=== PATIENT | male | born 1985 | race Caucasian/White ===

== ENCOUNTER 2017-02-27 11:51 | Emergency (ER) | payer MEDICARE ==
--- NOTE | 2017-02-27 12:18 | ER Document Report ---
ED Medical Screen (RME) - General Chief Complaint: Psych Problem Stated Complaint: PROBABLE SEIZURE Time Seen by Provider: 02/27/17 12:17 Notes: Patient reports stating that he has been diagnosed in the past with bipolar depression and PTSD. He states he has been feeling depressed lately and did try to overdose approximately 2 days ago. He states this morning he had a seizure and fell and hit his head and his became concerned and called the ambulance. During the EMS drive to the hospital he told them of his depression and suicidal ideation. He denies any auditory or visual hallucinations. He states he does not currently take any medications for seizures. TRAVEL OUTSIDE OF THE [place] IN LAST 30 DAYS: No - Related Data Allergies/Adverse Reactions: Penicillins Allergy (Severe, Verified 02/27/17 12:01) Anaphylaxis acetaminophen [From Tylenol] Adverse Reaction (Verified 02/27/17 12:01) Past Medical History - Past Medical History Cardiac Medical History: Denies: Hx Coronary Artery Disease, Hx Heart Attack, Hx Hypertension Pulmonary Medical History: Denies: Hx Asthma, Hx Bronchitis, Hx COPD, Hx Pneumonia Neurological Medical History: Denies: Hx Cerebrovascular Accident, Hx Seizures Renal/ Medical History: Denies: Hx Peritoneal Dialysis GI Medical History: Comment Only: Hx Ulcer - anxiety ptsd Musculoskeltal Medical History: Reports Hx Arthritis, Reports Hx Musculoskeletal Deformity, Reports Hx Musculoskeletal Trauma Skin Medical History: Reports Hx Cellulitis, Reports Hx MRSA Psychiatric Medical History: Reports: Hx Anxiety, Hx Depression, Hx Post Traumatic Stress Disorder Infectious Medical History: Reports: Hx MRSA Past Surgical History: Reports: Hx Orthopedic Surgery - Immunizations Immunizations up to date: Yes Hx Diphtheria, Pertussis, Tetanus Vaccination: Yes - 2005 Physical Exam - Vital signs Vitals: Temp Pulse Resp BP Pulse Ox 98.4 F 85 22 H 142/95 H 98 02/27/17 11:58 02/27/17 11:58 02/27/17 11:58 02/27/17 11:58 02/27/17 11:58 Course - Vital Signs Vital signs: Temp Pulse Resp BP Pulse Ox 98.4 F 85 22 H 142/95 H 98 02/27/17 11:58 02/27/17 11:58 02/27/17 11:58 02/27/17 11:58 02/27/17 11:58
[2017-02-27 13:48] LABS: ABSOLUTE EOSINOPHILS # (AUTO) 0.6 10^3/uL (0.0-0.6); ABSOLUTE LYMPHOCYTES (AUTO) 1.9 10^3/uL (0.5-4.7); ABSOLUTE MONOCYTES (AUTO) 0.7 10^3/uL (0.1-1.4); ABSOLUTE NEUT (AUTO) 4.7 10^3/uL (1.7-8.2); BASOPHILS % (AUTO) 0.5 % (0-2); EOSINOPHILS % (AUTO) 7.9 % (0-6); HEMATOCRIT 45.6 % (37.9-51.0); HEMOGLOBIN 14.8 g/dL (13.5-17.0); HGB HCT DIFFERENCE -1.2; MEAN CORPUSCULAR HEMOGLOBIN 26.7 pg (27.0-33.4); MEAN CORPUSCULAR HGB CONC 32.4 g/dL (32.0-36.0); MEAN CORPUSCULAR VOLUME 82 fl (80-97); MONOCYTES % (AUTO) 9.1 % (3-13); RED BLOOD COUNT 5.54 10^6/uL (4.35-5.55); RED CELL DISTRIBUTION WIDTH 15.1 % (11.5-14.0); SEGMENTED NEUTROPHILS % (AUTO) 58.5 % (42-78); WHITE BLOOD COUNT 8.1 10^3/uL (4.0-10.5)
[2017-02-27 13:50] LABS: APPEARANCE,URINE CLEAR; BILIRUBIN,URINE NEGATIVE (NEGATIVE); GLUCOSE, URINE NEGATIVE (NEGATIVE); KETONES,URINE NEGATIVE (NEGATIVE); LEUKOCYTE ESTERASE,URINE NEGATIVE (NEGATIVE); NITRITE,URINE NEGATIVE (NEGATIVE); PROTEIN,URINE NEGATIVE (NEGATIVE); URINE SPECIFIC GRAVITY 1.002; UROBILINOGEN,URINE NEGATIVE mg/dL (<2.0)
[2017-02-27 14:06] LABS: ALANINE AMINOTRANSFERASE 87 U/L (21-72); ALBUMIN 4.8 g/dL (3.5-5.0); ALKALINE PHOSPHATASE 82 U/L (38-126); ANION GAP 11 (5-19); ASPARTATE AMINO TRANSFERASE 67 U/L (17-59); BILIRUBIN,DIRECT 0.4 mg/dL (0.0-0.4); BILIRUBIN,TOTAL 0.6 mg/dL (0.2-1.3); BLOOD UREA NITROGEN 4 mg/dL (7-20); CALCIUM 10.1 mg/dL (8.4-10.2); CARBON DIOXIDE 29 mmol/L (22-30); CHLORIDE 101 mmol/L (98-107); CREATININE RESULT 0.84 mg/dL (0.52-1.25); GLUCOSE 92 mg/dL (75-110); POTASSIUM 4.2 mmol/L (3.6-5.0); SODIUM 141.4 mmol/L (137-145); TOTAL PROTEIN 8.1 g/dL (6.3-8.2); URINE BARBITURATES SCREEN NEGATIVE; URINE METHADONE SCREEN NEGATIVE; URINE OPIATES LOW NEGATIVE; URINE PHENCYCLIDINE SCREEN NEGATIVE
[2017-02-27 14:07] LABS: ALCOHOL < 10 mg/dL (NONE DETECTED)
--- NOTE | 2017-02-27 14:19 | ER Document Report ---
ED Psych Disorder / Suicide - General Information source: Patient, [facility], [facility] Records TRAVEL OUTSIDE OF THE [place] IN LAST 30 DAYS: No - HPI Onset: Other Onset was: Gradual Suicide Risk Factors: Depressed, Male, Other - alleged attempted OD 2 days ago Normal mood: Yes Associated symptoms: Normal affect, Normal mood, Anxious - per patient Similar symptoms previously: Yes Recently seen / treated by doctor: Yes <TENISHA GODFREY - Last Filed: 02/27/17 14:16> <PRASAD LOGAN - Last Filed: 02/27/17 15:01> - General Chief Complaint: Psych Problem Stated Complaint: PROBABLE SEIZURE Time Seen by Provider: 02/27/17 12:17 - HPI Notes: Patient is a 4o year old male who presents due to a seizure which he reportedly fell and hit his head. Patient disclosed to EMS en route that he is depressed and attempted suicide 2 days earlier via overdose. Patient this afternoon states a couple of days ago a mixture of events led him to want to and he attempted he "did something that cold have killed him and damn well didn't care. " He reports he did a cocktail of narcotics knowing that it could have killed him, but he did not care if he . He states he is depressed over missing his daughters. He states their kids were taken from them a while back, and he is on house arrest and is not able to leave to see them. He states he is on probation due to criminal charges of cutting/stealing copper wire. [facility] He states when he was in the [employer], he was treated with narcotics for pain, and when he was medically due to his knee, he states he was cut off of the medications. Patient states he does not want to by suicide. He states he is here because his called EMS due to the severity of his seizure. Patient states he fell backwards and hit his head. Patient states he is [facility], and his next appointment is March 13. He states he is required to follow up per his probation. 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 Patient is A&O. Mood is anxious with normal affect. Patient denies suicidal/ homicidal ideations, intent, plan, or means. Patient denies A/V H; delusions not noted. Thoght processes were organized. Conversational speech was WNL for rate, tone, and prosody. Intellectual abilities were estimated within average range. Attention and focus were good. Insight, judgment, and impulse control were poor. 292.9 (F11.99) Unspecified Opioid Related Disorder 309.81 (F43.10) Post Traumatic Stress Disorder by History (per patient report) Patient is psychiatrically cleared for discharge. Patient does not meet criteria for IVC per the [id number] as he denies SI.HI. Patient further denies suicide intent behind his drug use the other night. Patient endorses passive suicidal ideations and states he "wakes up like this every day." Patient reports prior to his drug incident the other night, he has been clean from drugs. Patient is required by his probation to [facility]. (TENISHA GODFREY) - Related Data Allergies/Adverse Reactions: Penicillins Allergy (Severe, Verified 02/27/17 12:01) Anaphylaxis acetaminophen [From Tylenol] Adverse Reaction (Verified 02/27/17 12:01) Past Medical History - General Information source: Patient, [facility], [facility] Records - Social History Smoking Status: Current Every Day Smoker Cigarette use (# per day): Yes - 1/2 ppd Family History: Reviewed & Not Pertinent, Other - adopted Patient has suicidal ideation: No Patient has homicidal ideation: No - Past Medical History Cardiac Medical History: Denies: Hx Coronary Artery Disease, Hx Heart Attack, Hx Hypertension Pulmonary Medical History: Denies: Hx Asthma, Hx Bronchitis, Hx COPD, Hx Pneumonia Neurological Medical History: Denies: Hx Cerebrovascular Accident, Hx Seizures Renal/ Medical History: Denies: Hx Peritoneal Dialysis GI Medical History: Comment Only: Hx Ulcer - anxiety ptsd Musculoskeltal Medical History: Reports Hx Arthritis, Reports Hx Musculoskeletal Deformity, Reports Hx Musculoskeletal Trauma Skin Medical History: Reports Hx Cellulitis, Reports Hx MRSA Psychiatric Medical History: Reports: Hx Anxiety, Hx Depression, Hx Post Traumatic Stress Disorder Infectious Medical History: Reports: Hx MRSA Past Surgical History: Reports: Hx Orthopedic Surgery - Immunizations Immunizations up to date: Yes Hx Diphtheria, Pertussis, Tetanus Vaccination: Yes - 2005 <TENISHA GODFREY - Last Filed: 02/27/17 14:16> - General Information source: Patient - Social History Smoking Status: Current Every Day Smoker Cigarette use (# per day): Yes Frequency of alcohol use: Occasional Drug Abuse: None <PRASAD LOGAN - Last Filed: 02/27/17 15:01> Review of Systems - Review of Systems Constitutional: denies: Chills, Fever Cardiovascular: denies: Chest pain, Palpitations Respiratory: denies: Cough, Short of breath -: Yes All other systems reviewed and negative <PRASAD LOGAN - Last Filed: 02/27/17 15:01> Physical Exam - Vital signs Interpretation: Hypertensive - General General appearance: Appears well, Alert - HEENT Head: Normocephalic, Atraumatic Eyes: Normal Pupils: PERRL - Respiratory Respiratory status: No respiratory distress Chest status: Nontender Breath sounds: Normal Chest palpation: Normal - Cardiovascular Rhythm: Regular Heart sounds: Normal auscultation Murmur: No - Abdominal Inspection: Normal Distension: No distension Bowel sounds: Normal Tenderness: Nontender Organomegaly: No organomegaly - Back Back: Normal, Nontender - Extremities General upper extremity: Normal inspection, Nontender, Normal color, Normal ROM , Normal temperature General lower extremity: Normal inspection, Nontender, Normal color, Normal ROM , Normal temperature, Normal weight bearing. No: Christie's sign - Neurological Neuro grossly intact: Yes Cognition: Normal Orientation: AAOx4 [place] Coma Scale Eye Opening: Spontaneous [place] Coma Scale Verbal: Oriented [place] Coma Scale Motor: Obeys Commands Mil[place] Coma Scale Total: 15 Speech: Normal Motor strength normal: LUE, RUE, LLE, RLE Sensory: Normal - Psychological Associated symptoms: Normal affect, Normal mood - Skin Skin Temperature: Warm Skin Moisture: Dry Skin Color: Normal <PRASAD LOGAN - Last Filed: 02/27/17 15:01> - Vital signs Vitals: Temp Pulse Resp BP Pulse Ox 98.4 F 85 22 H 142/95 H 98 02/27/17 11:58 02/27/17 11:58 02/27/17 11:58 02/27/17 11:58 02/27/17 11:58 Course - Laboratory Result Diagrams: 02/27/17 13:34 02/27/17 13:34 <TENISHA GODFREY - Last Filed: 02/27/17 14:16> - Laboratory Result Diagrams: 02/27/17 13:34 02/27/17 13:34 <PRASAD LOGAN - Last Filed: 02/27/17 15:01> - Vital Signs Vital signs: Temp Pulse Resp BP Pulse Ox 98.4 F 85 22 H 142/95 H 98 02/27/17 11:58 02/27/17 11:58 02/27/17 11:58 02/27/17 11:58 02/27/17 11:58 - Laboratory Laboratory results interpreted by me: 02/27/17 02/27/17 13:34 13:34 MCH 26.7 L RDW 15.1 H Eosinophils % 7.9 H BUN 4 L AST 67 H ALT 87 H Salicylates < 1.0 L Acetaminophen < 10 L Discharge <TENISHA GODFREY - Last Filed: 02/27/17 14:16> <PRASAD LOGAN - Last Filed: 02/27/17 15:01> - Discharge Clinical Impression: Opioid abuse, Posttraumatic stress disorder Condition: Stable Disposition: HOME, SELF-CARE Additional Instructions: Post-Traumatic Stress Disorder You seem to have post-traumatic stress disorder (PTSD). PTSD can cause chronic anxiety, sleeping problems, social withdrawal, and drug abuse. It can occur following a traumatic personal experience such as an accident, rape, assault, or of a loved one, or after experiencing a war or natural disaster. Symptoms may be delayed for days or even years. Emotional numbing, the inability to express grief, is usually the earliest sign. There may be apathy or agitation, aggression, and inability to perform ordinary tasks. Often there are frightening nightmares and sudden, intruding memories of the trauma. Panic attacks and feelings of guilt are common. Alcohol and drug use make post- traumatic stress symptoms worse. Medication may be temporarily necessary to combat anxiety, panic attacks, and depression. Medicine should not be considered a "cure." You must deal with the trauma and prepare to go on. Group therapy is often helpful. This helps you "talk through" the problem with others who share your symptoms. We can provide you with an appropriate referral. Please stop using drugs. Please follow up with your [place] substance abuse program at your scheduled appointment. Please take your medications as prescribed. Referrals: [facility] [Provider Group] - Follow up as needed
[2017-02-27 15:16] VITALS: BP 135/97
--- NOTE | 2017-02-27 19:55 | EKG REPORT ---
SEVERITY:- NORMAL ECG - SINUS RHYTHM : Confirmed by: Divya Mason 27-Feb-2017 19:54:41
== END 2017-02-27 15:16 | disposition home or self-care (01) ==
LOC: ER 11:51
DX: F11.10 Opioid abuse, uncomplicated (principal); F43.10 Post-traumatic stress disorder, unspecified; F17.210 Nicotine dependence, cigarettes, uncomplicated; Z86.14 Personal history of Methicillin resistant Staphylococcus aureus infection
CPT/HCPCS: 36415; 80053; 80307; 81001; 85025; 93005; 93010; 99284

== ENCOUNTER 2017-09-10 08:45 | Emergency (ER) | payer MEDICARE ==
[2017-09-10] MEDS ORDERED: KETOROLAC TROMETHAMINE INJ/PF 30 MG/1 ML SDV IM ONE (09:30)
--- NOTE | 2017-09-10 09:34 | ER Document Report ---
ED Extremity Problem, Lower - General Chief Complaint: Knee Pain Stated Complaint: RIGHT KNEE PAIN Time Seen by Provider: 09/10/17 09:09 Mode of Arrival: Medic Information source: Patient TRAVEL OUTSIDE OF THE [place] IN LAST 30 DAYS: No - HPI Patient complains to provider of: Injury Location: Knee Notes: Patient is here with complaints of right knee pain. He states that he has a history of chronic issues with this knee. He has been seen for at the [facility]. He states that he had an MRI done last year. He does not know the results of the MRI because he went to senior care after the MRI was performed. He has not followed back up with the [facility] since that time. He states that today his knee gave out on him while he was walking causing him to fall and then when he tried to get back up he fell again. Complains of pain in the right knee as well as pain in the mid back. He denies striking his head. No loss of consciousness. He is not on blood thinning medications. He denies any numbness, tingling, weakness. No bowel or bladder dysfunction. His biggest complaint is pain in the right knee. Is worse with any sort of movement and weightbearing. He denies fevers. He denies nausea, vomiting, diarrhea. He denies any other injuries or any other complaints at this time. This is a fairly common problem for this patient. - Related Data Allergies/Adverse Reactions: Penicillins Allergy (Severe, Verified 09/10/17 08:46) Anaphylaxis acetaminophen [From Tylenol] Adverse Reaction (Verified 09/10/17 08:46) Past Medical History - Social History Smoking Status: Current Every Day Smoker Family History: Reviewed & Not Pertinent, Other - adopted - Past Medical History Cardiac Medical History: Denies: Hx Coronary Artery Disease, Hx Heart Attack, Hx Hypertension Pulmonary Medical History: Denies: Hx Asthma, Hx Bronchitis, Hx COPD, Hx Pneumonia Neurological Medical History: Denies: Hx Cerebrovascular Accident, Hx Seizures Renal/ Medical History: Denies: Hx Peritoneal Dialysis GI Medical History: Comment Only: Hx Ulcer - anxiety ptsd Musculoskeltal Medical History: Reports Hx Arthritis, Reports Hx Musculoskeletal Deformity, Reports Hx Musculoskeletal Trauma Skin Medical History: Reports Hx Cellulitis, Reports Hx MRSA Psychiatric Medical History: Reports: Hx Anxiety, Hx Depression, Hx Post Traumatic Stress Disorder Infectious Medical History: Reports: Hx MRSA Past Surgical History: Reports: Hx Orthopedic Surgery - Immunizations Immunizations up to date: Yes Hx Diphtheria, Pertussis, Tetanus Vaccination: Yes - 2005 Review of Systems - Review of Systems -: Yes All other systems reviewed and negative Physical Exam - Vital signs Vitals: Temp Pulse Resp BP Pulse Ox 97.5 F 120 H 20 142/81 H 100 09/10/17 08:48 09/10/17 08:48 09/10/17 08:48 09/10/17 08:48 09/10/17 08:48 - Notes Notes: GENERAL: alert, cooperative, nontoxic, no distress. HEAD: normocephalic, atraumatic EYES: conjunctiva pink without discharge, no external redness or swelling. EARS: no external swelling, no external redness NOSE: atraumatic, no external swelling MOUTH/THROAT: mucous membranes moist and pink NECK: soft, supple, full range of motion, no meningismus. CHEST: no distress, lungs clear and equal throughout. No wheezing, rales, rhonchi. CARDIAC: regular rate and rhythm, no murmur, normal capillary refill, normal pulses. BACK: full range of motion, no CVA tenderness. Mild tenderness to palpation of the midline thoracic spine at approximately T10. No step-offs or crepitus. The remainder of the spine has no midline tenderness. EXTREMITIES: Slightly limited range of motion of the right knee. Tenderness to the medial aspect of the right knee. There is no swelling. He has a normal straight leg raise. No ligament instability. Anterior posterior drawer are normal. No redness. Normal pulse and sensation distally NEURO: alert and oriented 3, no focal deficits, full range of motion of all extremities. PYSCH: appropriate mood, affect. Patient is cooperative. SKIN: pink, warm, dry, no rash. Course - Re-evaluation Re-evalutation: 09/10/17 10:15 Patient is nontoxic appearing with stable vitals. The patient states that he was walking when his right knee gave out on him causing him to fall and when he tried to get up he fell again. Is now complaining of right knee pain and upper back pain. This is a chronic problem for this patient. Been seen at the [facility] for it and has had an MRI of the right knee in the past. He was not able to follow back up with him because he went to senior care. He is now here with complaints of right knee and back pain. His exam shows no signs of infection. He is a normal neurological exam. Normal vascular exam. Patient will be placed in a knee immobilizer will be given crutches to help facilitate ambulation. The patient is requesting a note stating that he cannot walk very much that he does not need to go to court, I explained that he should be fine to go to court as he will have crutches that he can walk on. He can also use a wheelchair if needed. Patient will be discharged home with a prescription for Naprosyn. Instructions to follow-up with his orthopedist at the [facility]. He is unable to follow-up with his orthopedist, I will refer him to our orthopedist. Follow-up sooner for increasing pain, high fever, numbness, tingling, weakness, bowel or bladder dysfunction, or for any further concerns. The patient is noted to have elevated blood pressure during today's emergency department visit. The patient was informed of this finding. The patient was instructed that this may be related to pre-hypertension and requires further evaluation with a primary care provider. The patient has no hypertensive symptoms at this time. The patient's emergency department workup and current diagnosis were explained to the patient and or family. Follow-up instructions were provided. Medications if prescribed were discussed. Instructions for when to return to the emergency department including specific worrisome symptoms were discussed with the patient and/or family. - Vital Signs Vital signs: Temp Pulse Resp BP Pulse Ox 97.5 F 120 H 20 142/81 H 100 09/10/17 08:48 09/10/17 08:48 09/10/17 08:48 09/10/17 08:48 09/10/17 08:48 - Diagnostic Test Radiology reviewed: Image reviewed, Reports reviewed - Right knee and thoracic spine with no acute fracture. Procedures - Immobilization Right knee Pre-Proc Neuro Vasc Exam: Normal Immobilizer type: Knee immobilizer Performed by: PCT Post-Proc Neuro Vasc Exam: Normal Alignment checked and good: Yes Discharge - Discharge Clinical Impression: Thoracic sprain Knee sprain Qualifiers: Encounter type: initial encounter Involved ligament of knee: unspecified ligament Laterality: right Qualified Code(s): S83.91XA - Sprain of unspecified site of right knee, initial encounter Condition: Stable Disposition: HOME, SELF-CARE Instructions: Use of Crutches ([facility]), Ice & Elevation ([facility]), Knee Immobilizing Splint ([facility]), Sprained Knee ([facility]) Additional Instructions: Take medications as prescribed. Follow-up with Ortho at the next available appointment. Follow-up sooner for worsening pain, fever, redness, numbness, tingling, weakness, bowel or bladder dysfunction, or for any further concerns. Your blood pressure was elevated during today's visit. Have this rechecked with your doctor. Prescriptions: Naproxen [Naprosyn] 500 mg PO BID #20 tablet Forms: Elevated Blood Pressure, Smoking Cessation Education Referrals: [facility] [Provider Group] - Follow up as needed NOAH JOHN DO [ACTIVE STAFF] - Follow up as needed
--- NOTE | 2017-09-10 09:43 | RADIOLOGY REPORT (SQ) ---
EXAM DESCRIPTION: KNEE RIGHT 4 VIEWS COMPLETED DATE/TIME: 09/10/2017 9:29 am REASON FOR STUDY: pain COMPARISON: None. NUMBER OF VIEWS: Four views. TECHNIQUE: AP, lateral, and both oblique radiographic images acquired of the right knee. LIMITATIONS: None. FINDINGS: MINERALIZATION: Normal. BONES: No acute fracture or dislocation. No worrisome bone lesions. JOINT: Joint space narrowing medial compartment. Small effusion. SOFT TISSUES: No soft tissue swelling. No radio-opaque foreign body. OTHER: No other significant finding. IMPRESSION: Small joint effusion. TECHNICAL DOCUMENTATION: JOB ID: [id number] [employer]- All Rights Reserved Reading location - IP/workstation name: [email or web address]
--- NOTE | 2017-09-10 09:53 | RADIOLOGY REPORT (SQ) ---
EXAM DESCRIPTION: T SPINE AP/LAT COMPLETED DATE/TIME: 09/10/2017 9:42 am REASON FOR STUDY: fall, pain COMPARISON: None. NUMBER OF VIEWS: Two views. TECHNIQUE: AP and lateral radiographic images acquired of the thoracic spine. LIMITATIONS: None. FINDINGS: MINERALIZATION: Normal. ALIGNMENT: Mild scoliosis convex to the left. VERTEBRAE: Mild vertebral height loss in the mid thoracic spine which does not appear to be acute. N o evidence acute fracture. DISCS: Mild degenerative disc disease in the mid and lower thoracic spine. HARDWARE: None in the spine. MEDIASTINUM AND SOFT TISSUES: Normal heart size and aortic contour. No soft tissue abnormality. VISUALIZED LUNG CARUSO: Clear. OTHER: No other significant finding. IMPRESSION: 1. No evidence of acute injury. 2. Mild scoliosis and mild degenerative changes. TECHNICAL DOCUMENTATION: JOB ID: [id number] [employer]- All Rights Reserved Reading location - IP/workstation name: [email or web address]
[2017-09-10 10:28] VITALS: BP 148/87
== END 2017-09-10 10:37 | disposition home or self-care (01) ==
LOC: ER 08:45
DX: S83.91XA Sprain of unspecified site of right knee, initial encounter (principal); M25.561 Pain in right knee; M54.6 Pain in thoracic spine; W19.XXXA Unspecified fall, initial encounter; F17.200 Nicotine dependence, unspecified, uncomplicated; I10 Essential (primary) hypertension
CPT/HCPCS: 99284; 96372; 73564; 72070; L1830; J1885